=== PATIENT | male | born 1955 | race Caucasian/White ===

== ENCOUNTER 2022-10-06 08:26 | Day surgery (SDC) | payer MEDICARE, OTHER ==
[~2022-10-06] VITALS: Ht 177.8 cm; Wt 74.0 kg
[2022-10-06] MEDS ORDERED: K-Dur10 MEQ (09:44)
[2022-10-06] MEDS ORDERED: ONDA4ODT MM (09:44)
[2022-10-06] MEDS ORDERED: FUROSEMIDE20 MG PO (09:44)
[2022-10-06] MEDS ORDERED: METO50 PO (09:44)
[2022-10-06] MEDS ORDERED: NEURONTIN300 MG PO (09:45)
[2022-10-06] MEDS ORDERED: ATOR10 PO (09:46)
[2022-10-06] MEDS ORDERED: BEVESPI AEROS10.7 G1 INH (09:46)
[2022-10-06] MEDS ORDERED: FAMO20 PO (09:46)
[2022-10-06] MEDS ORDERED: DILTIAZEM 24HR120 M2 PO (09:46)
[2022-10-06] MEDS ORDERED: FLOVENT HFA12 GM INH (09:47)
[2022-10-06] MEDS ORDERED: CYCL10 PO (09:48)
[2022-10-06] MEDS ORDERED: ASPI325 PO (09:48)
[2022-10-06] MEDS ORDERED: VITAMIN B-122000 MC1 PO (09:49)
[2022-10-06] MEDS ORDERED: MIRALAX17 GM PO (09:50)
[2022-10-06] MEDS ORDERED: SENNA LAXATIVE8.6 MG PO (09:50)
[2022-10-06] MEDS ORDERED: GUAI600T33 PO (09:51)
[2022-10-06] MEDS ORDERED: ACET500 PO (09:52)
[2022-10-06] MEDS ORDERED: BISA10S PR (09:52)
[2022-10-06] MEDS ORDERED: ALBU90OI6 INH (09:53)
[2022-10-06] MEDS ORDERED: COMBIVENT RESPIM4 G1 INH (09:53)
--- NOTE | 2022-10-06 09:54 | NUR ---
Ambulatory in Day Surgery with cane. Patient confirms NPO status and agrees with scheduled surgery. Pre-Op teaching done. Pt verbalizes understanding. Patient states colon prep results dark yellow but transparent. Patient States Post-Procedure ride home has been arranged.
--- NOTE | 2022-10-06 10:57 | NUR ---
10/06/22 1057 [address] HISTORY, CHART, MEDICATIONS AND ALLERGIES REVIEWED BEFORE START OF PROCEDURE. PATIENT CONFIRMS NPO STATUS AND AGREES WITH SCHEDULED PROCEDURE. 3-LEAD EKG REVIEWED WITH PHYSICIAN PRIOR TO START OF PROCEDURE. MONITOR INTACT WITH CONTINUOUS PULSE OXIMETRY,CAPNOGRAPHY, 3-LEAD EKG, INTERMITTENT BP. SUPPLEMENTAL O2 TO BE TITRATED THROUGHOUT PROCEDURE TO MAINTAIN O2 SATURATION ABOVE 90%. PATIENT DETERMINED TO BE ASA APPROPRIATE FOR PROPOFOL SEDATION PRIOR TO START OF PROCEDURE BY
== END 2022-10-06 11:10 | disposition home or self-care (01) ==
LOC: ORSCMMR 08:26 → ORD 09:30 → ORSCMMR 09:30
PROVIDERS: Internal Medicine Gastroenterology
PROC: 0DB48ZX Excision of Esophagogastric Junction, Via Natural or Artificial Opening Endoscopic, Diagnostic (ICD-10-PCS; principal; 2022-10-06 09:30)
PROC: 0DB98ZX Excision of Duodenum, Via Natural or Artificial Opening Endoscopic, Diagnostic (ICD-10-PCS; principal; 2022-10-06 09:30)
PROC: 0DB78ZX Excision of Stomach, Pylorus, Via Natural or Artificial Opening Endoscopic, Diagnostic (ICD-10-PCS; principal; 2022-10-06 09:30)
PROC: 0DBM8ZX Excision of Descending Colon, Via Natural or Artificial Opening Endoscopic, Diagnostic (ICD-10-PCS; principal; 2022-10-06 09:30)
PROC: 0DBK8ZX Excision of Ascending Colon, Via Natural or Artificial Opening Endoscopic, Diagnostic (ICD-10-PCS; principal; 2022-10-06 09:30)
PROC: 0DBL8ZX Excision of Transverse Colon, Via Natural or Artificial Opening Endoscopic, Diagnostic (ICD-10-PCS; principal; 2022-10-06 09:30)
DX: K62.5 Hemorrhage of anus and rectum (principal); R11.2 Nausea with vomiting, unspecified; K21.9 Gastro-esophageal reflux disease without esophagitis; K29.70 Gastritis, unspecified, without bleeding; D12.3 Benign neoplasm of transverse colon; D12.2 Benign neoplasm of ascending colon; D12.4 Benign neoplasm of descending colon; K63.89 Other specified diseases of intestine; K57.30 Diverticulosis of large intestine without perforation or abscess without bleeding; I48.91 Unspecified atrial fibrillation; Z79.899 Other long term (current) drug therapy; F17.210 Nicotine dependence, cigarettes, uncomplicated; J44.9 Chronic obstructive pulmonary disease, unspecified
CPT/HCPCS: 82947; 88305; 88342; A9270; J2250; J2704; J7120